=== PATIENT | female | born 2000 | race Caucasian/White ===

== ENCOUNTER → 2020-04-27 13:22 | Outpatient (BNVA) | payer OTHER, SELFPAY | PROVIDERS: Family Provider Family Medicine; PCP Family Medicine; Visit Provider Dermatology | DX: D22.9 Melanocytic nevi, unspecified (principal); L85.8 Other specified epidermal thickening; L70.0 Acne vulgaris; L70.8 Other acne | CPT/HCPCS: 99203 ==